=== PATIENT | male | born 1960 | race Caucasian/White ===

== ENCOUNTER → 2017-04-28 | Outpatient (CLI) | payer BC ==
[~2017-04-28] MED LIST: ASPIR-LOW81 MG PO; BYSTOLIC; CARDIZEM CD 18180 MG PO; CLARINEX-D 24 H1 T24 PO; DILTIAZEM PO; LIPITOR 80MG80 MG PO; MVI
== END ==
LOC: COL.RAD 07:24
DX: Z08 Encounter for follow-up examination after completed treatment for malignant neoplasm (principal); N28.89 Other specified disorders of kidney and ureter; Z90.5 Acquired absence of kidney
CPT/HCPCS: J7050; Q9967

== ENCOUNTER → 2018-05-11 | Outpatient (CLI) | payer BC | LOC: COL.RAD 07:27 | DX: C64.9 Malignant neoplasm of unspecified kidney, except renal pelvis (principal); Z90.5 Acquired absence of kidney; Z90.89 Acquired absence of other organs | CPT/HCPCS: Q9967 ==

== ENCOUNTER → 2021-05-12 | Outpatient (CLI) | payer BC | LOC: COL.RAD 07:34 | DX: Z85.528 Personal history of other malignant neoplasm of kidney (principal); Z90.5 Acquired absence of kidney; Z90.89 Acquired absence of other organs | CPT/HCPCS: Q9967 ==